=== PATIENT | male | born 1945 | race African-American/Black ===

== ENCOUNTER 2016-05-10 05:02 | Day surgery (SDC) | payer OTHER ==
[2016-05-10] MEDS ORDERED: CEFAZOLIN SODIUM/DEXTROSE,ISO 50 ML IV ONE (05:18)
[2016-05-10] MEDS ORDERED: IV LR 1000 ML 1,000 ML ONE (05:19)
[2016-05-10] MEDS ORDERED: SECONDARY IV SET 1 EA INFUS.SET MC ONE (05:19)
[2016-05-10] MEDS ORDERED: IV SET PRIMARY PUMP SET 1 EA INFUS.SET MC ONE (05:19)
[2016-05-10] MEDS ORDERED: LIDOCAINE HCL/PF 1% 30 ML SDV ONE (06:18)
[2016-05-10] MEDS ORDERED: FENTANYL PF 100MCG/2ML AMPUL ONE (06:39)
[2016-05-10] MEDS ORDERED: MIDAZOLAM HCL 2 MG/2ML VIAL ONE (06:39)
[2016-05-10] MEDS ORDERED: SUCCINYLCHOLINE CHLORIDE 20 MG/ML VIAL ONE (07:01)
[2016-05-10] MEDS ORDERED: methylPREDNISolone ACETATE 80 MG/ML VIAL ONE (07:15)
[2016-05-10] MEDS ORDERED: HYDROCODONE/APAP 5/325MG 1 EACH TABLET PO PRN ×2 (10:00)
[2016-05-10] MEDS ORDERED: ANESTHESIA TRAY IN PYXIS 1 EA TRAY MC ONE (12:41)
== END 2016-05-10 13:01 | disposition home or self-care (01) ==
LOC: DS 05:02
PROVIDERS: ATTEND Specialist
DX: S83.242A Other tear of medial meniscus, current injury, left knee, initial encounter (principal); S83.282A Other tear of lateral meniscus, current injury, left knee, initial encounter; X58.XXXA Exposure to other specified factors, initial encounter; Y93.89 Activity, other specified; Y92.89 Other specified places as the place of occurrence of the external cause; Y99.8 Other external cause status; M94.262 Chondromalacia, left knee; M65.88 Other synovitis and tenosynovitis, other site; J45.909 Unspecified asthma, uncomplicated; I10 Essential (primary) hypertension; E66.01 Morbid (severe) obesity due to excess calories; G47.33 Obstructive sleep apnea (adult) (pediatric); Z83.3 Family history of diabetes mellitus; Z82.49 Family history of ischemic heart disease and other diseases of the circulatory system
CPT/HCPCS: 29880; 71010; 88304; 88305; 88311; 93005; A4217; A6253 ×2; J0330; J0690; J1040; J1100; J1885; J2250; J2405; J2704; J3010; J3490 ×3; J7120

== ENCOUNTER 2021-05-23 09:40 | Emergency (ER) | payer MEDICARE, BC ==
[~2021-05-23] VITALS: Ht 182.9 cm; Wt 108.6 kg
[2021-05-23] MEDS: ONDANSETRON 4 MG TAB.RAPDIS PO ONE (10:21)
[2021-05-23] MEDS: MORPHINE SULFATE INJ 2 MG/ML DISP.SYRIN IM ONE (10:21)
[2021-05-23] MEDS: ASPIRIN 81 MG TAB.CHEW PO ONE (10:21)
[2021-05-23] MEDS ORDERED: ONDANSETRON HCL/PF 4 MG/2 ML VIAL ONE (10:30)
[2021-05-23] MEDS ORDERED: MORPHINE SULFATE INJ 2 MG/ML DISP.SYRIN ONE (10:30)
[2021-05-23] MEDS ORDERED: ASPIRIN 81 MG TAB.CHEW ONE (10:31)
[2021-05-23 10:42] LABS: BASOPHILS # (AUTO) 0.1 K/uL (0.0-0.2); BASOPHILS % (AUTO) 0.8 % (0.0-2.0); EOSINOPHILS % (AUTO) 1.5 % (0.0-6.0); HEMATOCRIT 49 % (39-51); HEMOGLOBIN 16.4 g/dL (13.5-17.5); LYMPHOCYTES # (AUTO) 1.6 K/uL (0.8-4.8); LYMPHOCYTES % (AUTO) 21.3 % (20.0-44.0); MEAN CORPUSCULAR HGB CONC 33 g/dl (31.0-36.0); MEAN CORPUSCULAR VOLUME 100 fL (80-96); MONOCYTES # (AUTO) 0.6 K/uL (0.1-1.30); MONOCYTES % (AUTO) 7.9 % (2.0-12.0); NEUTROPHILS # (AUTO) 5.1 K/uL (1.8-8.9); NEUTROPHILS % (AUTO) 68.5 % (43.0-81.0); PLATELET COUNT (AUTO) 177 K/uL (150-450); RED BLOOD CELL COUNT(AUTO) 4.93 MIL/uL (4.5-6.0); WHITE BLOOD COUNT (AUTO) 7.5 K/uL (4.3-11.0)
[2021-05-23 10:49] LABS: CALCIUM, SERUM 9.2 mg/dL (8.5-10.1); CARBON DIOXIDE 28 mmol/L (21-32); CHLORIDE 103 mmol/L (98-107); CREATININE 1.4 mg/dL (0.6-1.3); GLUCOSE 94 mg/dL (74-106); POTASSIUM 4.2 mmol/L (3.5-5.1); SODIUM SERUM 138 mmol/L (136-145); UREA NITROGEN, BLOOD 18 mg/dL (7-18)
--- NOTE | 2021-05-23 10:53 | NUR ---
BIBS FOR C/O TINGLING SENSATION R SIDE OF HEAD TRAVELING TO R JAW, AND ON AND OFF PAIN BACK OF HEAD TO UPPER CHEST X FEW MONTH. PAIN WORST TODAY 07/12. PT ATTATCHED TO MONITOR. WARM BLANKET PROVIDED FOR COMFORT. WILL CONTINUE TO MONITOR.
--- NOTE | 2021-05-23 10:54 | NUR ---
CREATININE 1.4 DR MERRITT AWARE AND PER OK TO USE CONTRAST.
[2021-05-23 10:55] LABS: ALANINE AMINOTRANSFERASE 55 U/L (12-78); ALBUMIN 4.2 g/dL (3.4-5.0); ALKALINE PHOSPHATASE 106 U/L (46-116); ASPARTATE AMINOTRANSFERASE 21 U/L (15-37); BILIRUBIN,DIRECT 0.1 mg/dL (0.0-0.2); BILIRUBIN,TOTAL 0.5 mg/dL (0.2-1.0); TOTAL PROTEIN, SERUM 8.2 g/dL (6.4-8.2)
[2021-05-23] MEDS: IV NS 0.9% 1,000 ML BAG IV ONE (11:03)
[2021-05-23] MEDS ORDERED: IOHEXOL-350 100 ML VIAL IV ONE ×2 (11:05→11:42)
[2021-05-23] MEDS ORDERED: IV NS 0.9% 250 ML IV ONE (11:05)
[2021-05-23] MEDS ORDERED: CT SWABBABLE VALVE TRANS SET 1 EA INFUS.SET MC ONE (11:05)
--- NOTE | 2021-05-23 11:13 | NUR ---
PT TAKEN TO CT
--- NOTE | 2021-05-23 12:00 | NUR ---
IV INFILTRATED IN CT. NEW IV ESTABLISHED R AC 18G AND OCNVERTED TO SALINE LOCK
[2021-05-23] MEDS ORDERED: AMOX-430 PO (13:25)
[2021-05-23 14:09] VITALS: BP 123/76
--- NOTE | 2021-05-23 14:09 | NUR ---
The patient is alert and oriented x4. Denies pain. In room air and denies SOB. Respiration regular and unlabored. IV removed. Catheter intact and site benign. Pressure and 4x4 applied to site. No bleeding noted.Patient discharged to home in stable condition. Written and verbal after care instructions given. Patient verbalizes understanding of instruction.
== END 2021-05-23 14:10 | disposition home or self-care (01) ==
LOC: ER 09:49
DX: H60.8X1 Other otitis externa, right ear (principal)
CPT/HCPCS: 36415; 70450; 70496; 70498; 71045; 80048; 80076; 82962; 84484; 85025; 85652; 85730; 93005; 96361; 96374; 96375; 99285; J2270; J2405; J7030; J7050; Q9967 ×2

== ENCOUNTER 2022-10-27 16:42 | Emergency (ER) | payer MEDICARE, BC ==
[~2022-10-27] VITALS: Ht 182.9 cm; Wt 108.9 kg
[~2022-10-27 16:42] MED LIST: AMOX-430 PO
[2022-10-27 17:31] LABS: BASOPHILS % (AUTO) 0.5 % (0.0-2.0); EOSINOPHILS # (AUTO) 0.4 K/uL (0.0-0.7); EOSINOPHILS % (AUTO) 5.3 % (0.0-6.0); HEMATOCRIT 51 % (39-51); HEMOGLOBIN 17.1 g/dL (13.5-17.5); LYMPHOCYTES # (AUTO) 2.1 K/uL (0.8-4.8); LYMPHOCYTES % (AUTO) 29.3 % (20.0-44.0); MEAN CORPUSCULAR HEMOGLOBIN 34 PG (26.0-33.0); MEAN CORPUSCULAR HGB CONC 34 g/dl (31.0-36.0); MEAN CORPUSCULAR VOLUME 101 fL (80-96); MONOCYTES # (AUTO) 0.6 K/uL (0.1-1.30); MONOCYTES % (AUTO) 8.8 % (2.0-12.0); NEUTROPHILS % (AUTO) 56.1 % (43.0-81.0); PLATELET COUNT (AUTO) 135 K/uL (150-450); RED BLOOD CELL COUNT(AUTO) 5.05 MIL/uL (4.5-6.0); RED CELL DISTRIBUTION WIDTH 14.1 % (11.5-15.0); WHITE BLOOD COUNT (AUTO) 7.1 K/uL (4.3-11.0)
[2022-10-27 17:50] LABS: ALANINE AMINOTRANSFERASE 56 U/L (12-78); ALBUMIN 3.8 g/dL (3.4-5.0); ALKALINE PHOSPHATASE 77 U/L (46-116); ASPARTATE AMINOTRANSFERASE 25 U/L (15-37); BILIRUBIN,DIRECT 0.1 mg/dL (0.0-0.2); BILIRUBIN,TOTAL 0.3 mg/dL (0.2-1.0); CALCIUM, SERUM 9.1 mg/dL (8.5-10.1); CARBON DIOXIDE 26 mmol/L (21-32); CHLORIDE 106 mmol/L (98-107); CREATININE 1.4 mg/dL (0.6-1.3); GLUCOSE 77 mg/dL (74-106); LIPASE 109 U/L (73-393); POTASSIUM 4.2 mmol/L (3.5-5.1); SODIUM SERUM 139 mmol/L (136-145); TOTAL PROTEIN, SERUM 7.7 g/dL (6.4-8.2); UREA NITROGEN, BLOOD 15 mg/dL (7-18)
[2022-10-27] MEDS ORDERED: IOHEXOL-300 100 ML VIAL IV ONE (17:59)
[2022-10-27] MEDS ORDERED: IV NS 0.9% 250 ML IV ONE (18:00)
[2022-10-27 18:11] LABS: APPEARANCE,URINE CLEAR (CLEAR); BILIRUBIN,URINE NEGATIVE (NEGATIVE); BLOOD, URINE NEGATIVE Ery/uL (NEGATIVE); COLOR,URINE YELLOW (YELLOW); KETONES,URINE NEGATIVE (NEGATIVE); LEUKOCYTE ESTERASE ,URINE NEGATIVE (NEGATIVE); NITRITE, URINE NEGATIVE (NEGATIVE); PH,URINE 7.5 (5.0-8.0); PROTEIN,URINE NEGATIVE (NEGATIVE); UGLUCOSE NEGATIVE (NEGATIVE); UROBILINOGEN,URINE 0.2 EU/dL (0.2)
[2022-10-27] MEDS ORDERED: IV NS 0.9% 1,000 ML BAG IV ONE (19:00)
[2022-10-27] MEDS ORDERED: IOHEXOL-350 100 ML VIAL IV ONE (19:35)
[2022-10-27] MEDS ORDERED: AMOX-430 PO (22:54)
[2022-10-27] MEDS ORDERED: AMOX/CLAVULANATE 875 MG TABLET PO ONE (23:00)
[2022-10-27] MEDS ORDERED: AMOX/CLAVULANATE 875 MG TABLET ONE (23:01)
[2022-10-27 23:22] VITALS: BP 138/74; TEMP 97.9; O2SAT 98
== END 2022-10-27 23:28 | disposition home or self-care (01) ==
LOC: ER 16:58
DX: R10.32 Left lower quadrant pain (principal); I10 Essential (primary) hypertension; Z79.899 Other long term (current) drug therapy
CPT/HCPCS: 99285; 74177; 96360; 85025; 80048; 83690; 80076; 81003; 36415; J7030; J7050; Q9967 ×2

== ENCOUNTER 2023-06-30 13:39 | Emergency (ER) | payer MEDICARE, BC ==
[~2023-06-30] VITALS: Ht 182.9 cm; Wt 103.1 kg
[2023-06-30 13:50] VITALS: TEMP 98
[2023-06-30 16:06] LABS: ALBUMIN 3.5 g/dL (3.4-5.0); BILIRUBIN,DIRECT 0.1 mg/dL (0.0-0.2); BILIRUBIN,TOTAL 0.4 mg/dL (0.2-1.0); CALCIUM, SERUM 9.3 mg/dL (8.5-10.1); CREATININE 1.3 mg/dL (0.6-1.3); POTASSIUM 4.3 mmol/L (3.5-5.1); TOTAL PROTEIN, SERUM 6.9 g/dL (6.4-8.2)
[2023-06-30 16:28] LABS: BASOPHILS % (AUTO) 0.4 % (0.0-2.0); EOSINOPHILS # (AUTO) 0.4 K/uL (0.0-0.7); EOSINOPHILS % (AUTO) 5.1 % (0.0-6.0); HEMATOCRIT 41 % (39-51); HEMOGLOBIN 13.7 g/dL (13.5-17.5); LYMPHOCYTES # (AUTO) 1.7 K/uL (0.8-4.8); LYMPHOCYTES % (AUTO) 23.7 % (20.0-44.0); MEAN CORPUSCULAR HEMOGLOBIN 33 PG (26.0-33.0); MEAN CORPUSCULAR HGB CONC 34 g/dl (31.0-36.0); MEAN CORPUSCULAR VOLUME 98 fL (80-96); MONOCYTES # (AUTO) 0.6 K/uL (0.1-1.30); MONOCYTES % (AUTO) 7.7 % (2.0-12.0); NEUTROPHILS # (AUTO) 4.6 K/uL (1.8-8.9); NEUTROPHILS % (AUTO) 63.1 % (43.0-81.0); PLATELET COUNT (AUTO) 168 K/uL (150-450); RED BLOOD CELL COUNT(AUTO) 4.17 MIL/uL (4.5-6.0); RED CELL DISTRIBUTION WIDTH 13.2 % (11.5-15.0); WHITE BLOOD COUNT (AUTO) 7.4 K/uL (4.3-11.0)
[2023-06-30 16:32] LABS: APPEARANCE,URINE CLEAR (CLEAR); BILIRUBIN,URINE NEGATIVE (NEGATIVE); BLOOD, URINE NEGATIVE Ery/uL (NEGATIVE); COLOR,URINE YELLOW (YELLOW); KETONES,URINE NEGATIVE (NEGATIVE); LEUKOCYTE ESTERASE ,URINE NEGATIVE (NEGATIVE); NITRITE, URINE NEGATIVE (NEGATIVE); PROTEIN,URINE NEGATIVE (NEGATIVE); UGLUCOSE NEGATIVE (NEGATIVE); UROBILINOGEN,URINE 0.2 EU/dL (0.2)
[2023-06-30 17:35] VITALS: BP 134/82; O2SAT 98
== END 2023-06-30 17:35 | disposition home or self-care (01) ==
LOC: ER 13:46
DX: K59.00 Constipation, unspecified (principal); N28.1 Cyst of kidney, acquired; R10.32 Left lower quadrant pain; I10 Essential (primary) hypertension; Z79.899 Other long term (current) drug therapy; Z60.2 Problems related to living alone
CPT/HCPCS: 36415; 80048-TC; 80076-TC; 83690-TC; 85025-TC